=== PATIENT | female | born 1985 | race African-American/Black ===

== ENCOUNTER 2016-10-22 15:28 | Emergency (ER) | payer OTHER ==
[~2016-10-22] VITALS: Ht 162.6 cm; Wt 89.9 kg
[~2016-10-22 15:28] MED LIST: ASPIR-8181 MG OR; BACTRIM DS1 TAB PO; CIPROFLOXACN500 MG PO; DONNATA2 OR; FIORICET PO; FLAGYL500 MG PO; IBUPROFEN200 M1 OR; IBUPROFEN600 MG PO; KLOR-CON M2020 MEQ PO; LORTAB 7.57.5 MG PO; MAALOX PLUS OR; NO; PLAVIX75 MG OR; PRILOSEC OTC20 MG OR; PYRIDIUM200 MG PO; ULTRAM50 M1 PO; ZOFRAN ODT8 MG PO; [UNRECOGNIZED DRUG - OTHER] PO; prenatal
[2016-10-22] MEDS ORDERED: PYRIDIUM200 MG PO (16:07)
[2016-10-22] MEDS ORDERED: BACTRIM DS1 TAB PO (16:07)
[2016-10-22 16:11] LABS: URINE BILIRUBIN - DIPSTICK NEGATIVE (NEGATIVE); URINE BLOOD DIPSTICK MODERATE (NEGATIVE); URINE CLARITY CLOUDY; URINE COLOR YELLOW; URINE GLUCOSE - DIPSTICK NEGATIVE (NEGATIVE); URINE KETONE NEGATIVE (NEGATIVE); URINE LEUK ESTERASE NEGATIVE (NEGATIVE); URINE NITRITE - DIPSTICK POSITIVE (Negative); URINE PH 6.5 (4.5-8.0); URINE PROTEIN - DIPSTICK NEGATIVE (NEG-TRACE); URINE UROBILINOGEN - DIPSTICK 0.2 E.U./dL (0.2)
[2016-10-22 16:17] LABS: URINE BACTERIA MANY hpf; URINE SQUAMOUS EPITHELIAL CELL MANY EPI/hpf (0-FEW)
[2016-10-22 16:24] VITALS: BP 130/60
== END 2016-10-22 16:40 | disposition home or self-care (01) | DRG 690 ==
LOC: ED 15:28
PROVIDERS: Emergency Medicine
DX: N39.0 Urinary tract infection, site not specified (principal); B96.20 Unspecified Escherichia coli [E. coli] as the cause of diseases classified elsewhere; Z87.440 Personal history of urinary (tract) infections

== ENCOUNTER 2017-10-10 15:03 | Emergency (ER) | payer OTHER ==
[~2017-10-10] VITALS: Ht 162.6 cm; Wt 96.0 kg
[2017-10-10 15:58] LABS: URINE BILIRUBIN - DIPSTICK NEGATIVE (NEGATIVE); URINE BLOOD DIPSTICK TRACE-INTACT (NEGATIVE); URINE COLOR YELLOW; URINE GLUCOSE - DIPSTICK NEGATIVE (NEGATIVE); URINE KETONE NEGATIVE (NEGATIVE); URINE LEUK ESTERASE NEGATIVE (NEGATIVE); URINE NITRITE - DIPSTICK NEGATIVE (Negative); URINE PROTEIN - DIPSTICK NEGATIVE (NEG-TRACE); URINE SPECIFIC GRAVITY 1.025; URINE UROBILINOGEN - DIPSTICK 0.2 E.U./dL (0.2)
[2017-10-10 16:00] LABS: URINE CLARITY CLEAR
[2017-10-10] MEDS ORDERED: CEPHALEXIN500 M1 PO (16:07)
[2017-10-10 16:10] VITALS: BP 135/77
== END 2017-10-10 16:15 | disposition home or self-care (01) | DRG 696 ==
LOC: ED 15:03
PROVIDERS: Family Medicine
DX: R30.0 Dysuria (principal)

== ENCOUNTER 2017-11-13 10:40 | Emergency (ER) | payer OTHER ==
[~2017-11-13] VITALS: Ht 162.6 cm; Wt 95.0 kg
[~2017-11-13 10:40] MED LIST changes: +CEPHALEXIN500 M1 PO
[2017-11-13 11:04] VITALS: BP 136/96
[2017-11-13 11:41] LABS: URINE BILIRUBIN - DIPSTICK NEGATIVE (NEGATIVE); URINE BLOOD DIPSTICK LARGE (NEGATIVE); URINE COLOR YELLOW; URINE GLUCOSE - DIPSTICK NEGATIVE (NEGATIVE); URINE KETONE NEGATIVE (NEGATIVE); URINE LEUK ESTERASE NEGATIVE (NEGATIVE); URINE NITRITE - DIPSTICK NEGATIVE (Negative); URINE PH 6.5 (4.5-8.0); URINE PROTEIN - DIPSTICK NEGATIVE (NEG-TRACE); URINE SPECIFIC GRAVITY 1.015; URINE UROBILINOGEN - DIPSTICK 0.2 E.U./dL (0.2)
[2017-11-13 11:42] LABS: IMMATURE GRANULOCYTES 0.2 % (0.0-1.0); MEAN CORPUSCULAR HGB 27.3 pG CALC (26.0-32.0); MEAN CORPUSCULAR HGB CONC 32.4 g/L CALC (32.0-36.0); NEUT# 2.84 thou/uL (2.00-7.15); RED BLOOD COUNT 4.62 mill/uL (4.20-5.60); RED CELL DISTRI WIDTH 13.6 % (11.5-15.5)
[2017-11-13 11:42] LABS: URINE CLARITY CLEAR
[2017-11-13 11:57] LABS: BILIRUBIN, TOTAL 0.4 mg/dL (0.0-1.4); BUN 7 mg/dL (7-17); BUN/CREATININE RATIO 11 (12-20 (CALC)); CHLORIDE 103 mmol/l (95-108); CREATININE 0.6 mg/dL (0.5-1.0); GFR > 60 ML/MIN (>=60 (CALC)); GFR FOR AFR.AMER. > 60 ML/MIN (>=60 (CALC)); LIPASE 45 u/l (23-300); POTASSIUM 3.7 mmol/l (3.5-5.1); SGOT/AST 14 u/l (14-36); SGPT/ALT 27 u/l (9-52); SODIUM 143 mmol/l (137-146); TOTAL PROTEIN 8.1 g/dL (6.3-8.2)
[2017-11-13 11:58] LABS: ALBUMIN 4.3 g/dL (3.2-5.0); ALKALINE PHOSPHATASE 72 u/l (38-126); ANION GAP 17 (6-22 (CALC)); CARBON DIOXIDE 27 mmol/l (22-30)
[2017-11-13 12:18] LABS: HEMATOCRIT 38.9 % (37.0-47.0); HEMOGLOBIN 12.6 g/dl (12.0-16.0); MEAN CELL VOLUME 84.2 fL CALC (80.0-100.0)
[2017-11-13 12:26] LABS: URINE RBC TNTC RBC/hpf (0-5); URINE SQUAMOUS EPITHELIAL CELL FEW EPI/hpf (0-FEW)
== END 2017-11-13 14:44 | disposition home or self-care (01) | DRG 782 ==
LOC: ED 10:40
PROVIDERS: Family Medicine
DX: O26.851 Spotting complicating pregnancy, first trimester (principal); M54.5 Low back pain; R10.84 Generalized abdominal pain

== ENCOUNTER 2017-11-23 15:14 | Emergency (ER) | payer OTHER ==
[~2017-11-23] VITALS: Ht 162.6 cm; Wt 95.0 kg
[2017-11-23 16:23] LABS: URINE BLOOD DIPSTICK LARGE (NEGATIVE); URINE GLUCOSE - DIPSTICK NEGATIVE (NEGATIVE); URINE KETONE TRACE mg/dL (NEGATIVE); URINE LEUK ESTERASE NEGATIVE (NEGATIVE); URINE NITRITE - DIPSTICK NEGATIVE (Negative); URINE PH 6.5 (4.5-8.0); URINE PROTEIN - DIPSTICK 100 mg/dL (NEG-TRACE); URINE UROBILINOGEN - DIPSTICK 0.2 E.U./dL (0.2)
[2017-11-23 16:28] LABS: URINE BILIRUBIN - DIPSTICK NEGATIVE (NEGATIVE); URINE CLARITY SL CLOUDY; URINE COLOR AMBER; URINE RBC >100 RBC/hpf (0-5); URINE SQUAMOUS EPITHELIAL CELL FEW EPI/hpf (0-FEW)
[2017-11-23 17:09] VITALS: BP 135/71
== END 2017-11-23 17:17 | disposition home or self-care (01) | DRG 779 ==
LOC: ED 15:14
DX: O03.9 Complete or unspecified spontaneous abortion without complication (principal)

== ENCOUNTER 2018-02-28 17:07 | Emergency (ER) | payer OTHER ==
[~2018-02-28] VITALS: Ht 162.6 cm; Wt 95.0 kg
[2018-02-28 18:22] LABS: URINE BILIRUBIN - DIPSTICK NEGATIVE (NEGATIVE); URINE BLOOD DIPSTICK NEGATIVE (NEGATIVE); URINE COLOR YELLOW; URINE GLUCOSE - DIPSTICK NEGATIVE (NEGATIVE); URINE KETONE TRACE mg/dL (NEGATIVE); URINE LEUK ESTERASE NEGATIVE (Negative); URINE NITRITE - DIPSTICK NEGATIVE (Negative); URINE PROTEIN - DIPSTICK NEGATIVE (NEG-TRACE); URINE SPECIFIC GRAVITY 1.025
[2018-02-28 18:25] LABS: URINE CLARITY SL CLOUDY
[2018-02-28 19:04] VITALS: BP 127/77
== END 2018-02-28 19:11 | disposition home or self-care (01) ==
LOC: ED 17:07
DX: Z32.01 Encounter for pregnancy test, result positive (principal); M54.5 Low back pain; R30.0 Dysuria; R35.0 Frequency of micturition; R39.15 Urgency of urination; R10.30 Lower abdominal pain, unspecified

== ENCOUNTER 2018-03-30 17:09 | Emergency (ER) | payer OTHER ==
[~2018-03-30] VITALS: Ht 162.6 cm; Wt 80.0 kg
[2018-03-30 18:00] LABS: HEMATOCRIT 37.2 % (37.0-47.0); HEMOGLOBIN 12.7 g/dl (12.0-16.0); IMMATURE GRANULOCYTES 0.3 % (0.0-5.0); MEAN CORPUSCULAR HGB CONC 34.1 g/L CALC (32.0-36.0); NEUT# 4.43 thou/uL (2.00-7.15); RED BLOOD COUNT 4.71 mill/uL (4.20-5.60); RED CELL DISTRI WIDTH 12.9 % (11.5-15.5)
[2018-03-30 18:03] LABS: BARBITURATES NEGATIVE (NEGATIVE); COCAINE NEGATIVE (NEGATIVE); METHADONE NEGATIVE (NEGATIVE); OXCYCODONE NEGATIVE (NEGATIVE); TETRAHYDROCANNABIONOL NEGATIVE (NEGATIVE); TRICYLIC ANTIDEPRESSANTS NEGATIVE (NEGATIVE); URINE BLOOD DIPSTICK TRACE-LYSED (NEGATIVE); URINE COLOR YELLOW; URINE GLUCOSE - DIPSTICK NEGATIVE (NEGATIVE); URINE KETONE 40 mg/dL (NEGATIVE); URINE LEUK ESTERASE TRACE (Negative); URINE NITRITE - DIPSTICK NEGATIVE (Negative); URINE PH 6.5 (4.5-8.0); URINE PROTEIN - DIPSTICK 30 mg/dL (NEG-TRACE); URINE SPECIFIC GRAVITY 1.025
[2018-03-30 18:04] LABS: URINE BILIRUBIN - DIPSTICK NEGATIVE (NEGATIVE); URINE CLARITY HAZY
[2018-03-30 18:12] LABS: URINE MUCUS MANY hpf (NONE-FEW); URINE SQUAMOUS EPITHELIAL CELL MANY EPI/hpf (0-FEW)
[2018-03-30 18:16] LABS: ALBUMIN 4.5 g/dL (3.2-5.0); ALKALINE PHOSPHATASE 60 u/l (38-126); ANION GAP 19 (6-22 (CALC)); BILIRUBIN, TOTAL 0.4 mg/dL (0.0-1.4); BUN 6 mg/dL (7-17); BUN/CREATININE RATIO 9 (12-20 (CALC)); CARBON DIOXIDE 24 mmol/l (22-30); CHLORIDE 96 mmol/l (95-108); CREATININE 0.7 mg/dL (0.5-1.0); GFR > 60 ML/MIN (>=60 (CALC)); GFR FOR AFR.AMER. > 60 ML/MIN (>=60 (CALC)); SODIUM 136 mmol/l (137-146); TOTAL PROTEIN 8.7 g/dL (6.3-8.2)
[2018-03-30 18:26] LABS: SGOT/AST 28 u/l (14-36)
[2018-03-30] MEDS ORDERED: POT CHLORIDE10 ME5 PO (18:42)
[2018-03-30] MEDS ORDERED: ZOFRAN ODT4 MG PO (18:42)
[2018-03-30 18:48] VITALS: BP 133/73
[2018-03-30 19:03] LABS: BETA-HCG, QUANT(RESULT NUMBER) 81297 mIU/mL
== END 2018-03-30 18:56 | disposition home or self-care (01) ==
LOC: ED 17:09
PROVIDERS: Emergency Medicine
DX: R10.30 Lower abdominal pain, unspecified (principal); G89.29 Other chronic pain; E87.6 Hypokalemia; Z33.1 Pregnant state, incidental

== ENCOUNTER 2019-11-02 | Emergency (ER) | payer OTHER ==
[~2019-11-02] MED LIST changes: +POT CHLORIDE10 ME5 PO; +ZOFRAN ODT4 MG PO
[2019-11-02 06:40] LABS: URINE BILIRUBIN - DIPSTICK NEGATIVE (NEGATIVE); URINE COLOR YELLOW; URINE GLUCOSE - DIPSTICK NEGATIVE (NEGATIVE); URINE KETONE NEGATIVE (NEGATIVE); URINE NITRITE - DIPSTICK NEGATIVE (Negative); URINE PROTEIN - DIPSTICK NEGATIVE (NEG-TRACE); URINE UROBILINOGEN - DIPSTICK 0.2 E.U./dL (0.2)
[2019-11-02 06:42] LABS: HEMATOCRIT 38.6 % (37.0-47.0); HEMOGLOBIN 12.5 g/dl (12.0-16.0); IMMATURE GRANULOCYTES 0.2 % (0.0-5.0); MEAN CELL VOLUME 80.4 fL CALC (80.0-100.0); MEAN CORPUSCULAR HGB CONC 32.4 g/dL CAL (32.0-36.0); NEUT# 3.44 thou/uL (2.00-7.15); RED BLOOD COUNT 4.8 mill/uL (4.20-5.60); RED CELL DISTRI WIDTH 14.4 % (11.5-15.5)
[2019-11-02 06:43] LABS: URINE BLOOD DIPSTICK NEGATIVE (NEGATIVE); URINE LEUK ESTERASE SMALL (NEGATIVE)
[2019-11-02 06:47] LABS: URINE BACTERIA MODERATE hpf; URINE EPITHELIAL CELLS MANY EPI/hpf (0-FEW)
[2019-11-02 06:49] LABS: BARBITURATES NEGATIVE (NEGATIVE); COCAINE NEGATIVE (NEGATIVE); METHADONE NEGATIVE (NEGATIVE); OXCYCODONE NEGATIVE (NEGATIVE); TETRAHYDROCANNABIONOL NEGATIVE (NEGATIVE); TRICYLIC ANTIDEPRESSANTS NEGATIVE (NEGATIVE)
[2019-11-02 07:00] LABS: ALBUMIN 4.5 g/dL (3.2-5.0); ALKALINE PHOSPHATASE 89 u/l (38-126); ANION GAP 13 (6-22 (CALC)); BILIRUBIN, TOTAL 0.4 mg/dL (0.0-1.4); BUN 4 mg/dL (7-17); BUN/CREATININE RATIO 6 (12-20 (CALC)); CARBON DIOXIDE 28 mmol/l (22-30); CHLORIDE 103 mmol/l (95-108); CREATININE 0.6 mg/dL (0.5-1.0); GFR > 60 ML/MIN (>=60 (CALC)); GFR FOR AFR.AMER. > 60 ML/MIN (>=60 (CALC)); POTASSIUM 3.1 mmol/l (3.5-5.1); SGOT/AST 30 u/l (14-36); SODIUM 140 mmol/l (137-146); TOTAL PROTEIN 8.6 g/dL (6.3-8.2)
[2019-11-02 07:12] LABS: MYOGLOBIN 15 ng/mL (0 - 62)
[2019-11-02] MEDS ORDERED: K-TAB20 MEQ PO (07:19)
[2019-11-02] MEDS ORDERED: CEPHALEXIN500 M1 PO (08:16)
== END 2019-11-02 08:15 | disposition home or self-care (01) ==
PROVIDERS: Emergency Medicine
DX: R00.2 Palpitations (principal); E87.6 Hypokalemia; R20.0 Anesthesia of skin; R06.02 Shortness of breath

== ENCOUNTER 2021-03-29 16:03 | Emergency (ER) | payer OTHER ==
[~2021-03-29] VITALS: Ht 162.6 cm; Wt 90.0 kg
[~2021-03-29 16:03] MED LIST changes: +K-TAB20 MEQ PO
[2021-03-29 17:43] LABS: HEMATOCRIT 43.5 % (37.0-47.0); HEMOGLOBIN 13.8 g/dl (12.0-16.0); MEAN CELL VOLUME 82.2 fL CALC (80.0-100.0); MEAN CORPUSCULAR HGB 26.1 pG CALC (26.0-32.0); MEAN CORPUSCULAR HGB CONC 31.7 g/dL CAL (32.0-36.0); NEUT# 3.16 thou/uL (2.00-7.15); RED BLOOD COUNT 5.29 mill/uL (4.20-5.60)
[2021-03-29 17:46] LABS: URINE BILIRUBIN - DIPSTICK NEGATIVE (NEGATIVE); URINE BLOOD DIPSTICK NEGATIVE (NEGATIVE); URINE COLOR YELLOW; URINE GLUCOSE - DIPSTICK NEGATIVE (NEGATIVE); URINE KETONE NEGATIVE (NEGATIVE); URINE LEUK ESTERASE NEGATIVE (NEGATIVE); URINE PROTEIN - DIPSTICK TRACE mg/dL (NEG-TRACE); URINE SPECIFIC GRAVITY >=1.030; URINE UROBILINOGEN - DIPSTICK 0.2 E.U./dL (0.2)
[2021-03-29 17:48] LABS: URINE NITRITE - DIPSTICK NEGATIVE (Negative)
[2021-03-29 17:55] LABS: ALBUMIN 4.8 g/dL (3.2-5.0); ALKALINE PHOSPHATASE 81 u/l (38-126); ANION GAP 16 (6-22 (CALC)); BILIRUBIN, TOTAL 0.5 mg/dL (0.0-1.4); BUN 4 mg/dL (7-17); BUN/CREATININE RATIO 6 (12-20 (CALC)); CARBON DIOXIDE 25 mmol/l (22-30); CHLORIDE 104 mmol/l (95-108); CREATININE 0.7 mg/dL (0.5-1.0); GFR > 60 ML/MIN (>=60 (CALC)); GFR FOR AFR.AMER. > 60 ML/MIN (>=60 (CALC)); SGOT/AST 22 u/l (14-36); SODIUM 141 mmol/l (137-146); TOTAL PROTEIN 9.5 g/dL (6.3-8.2)
[2021-03-29] MEDS ORDERED: MIRALAX17 GM PO (19:10)
[2021-03-29 19:15] VITALS: BP 126/75
== END 2021-03-29 19:15 | disposition home or self-care (01) ==
LOC: ED 16:03
PROVIDERS: Family Medicine
DX: K59.00 Constipation, unspecified (principal)

== ENCOUNTER 2021-04-02 16:18 | Emergency (ER) | payer OTHER ==
[~2021-04-02] VITALS: Ht 162.6 cm; Wt 100.0 kg
[~2021-04-02 16:18] MED LIST changes: +MIRALAX17 GM PO
[2021-04-02 17:23] LABS: HEMATOCRIT 42.9 % (37.0-47.0); HEMOGLOBIN 13.8 g/dl (12.0-16.0); IMMATURE GRANULOCYTES 0.3 % (0.0-5.0); MEAN CELL VOLUME 80.8 fL CALC (80.0-100.0); MEAN CORPUSCULAR HGB CONC 32.2 g/dL CAL (32.0-36.0); NEUT# 1.99 thou/uL (2.00-7.15); RED BLOOD COUNT 5.31 mill/uL (4.20-5.60); RED CELL DISTRI WIDTH 14.3 % (11.5-15.5)
[2021-04-02 17:26] LABS: URINE BLOOD DIPSTICK LARGE (NEGATIVE); URINE COLOR YELLOW; URINE GLUCOSE - DIPSTICK NEGATIVE (NEGATIVE); URINE KETONE 40 mg/dL (NEGATIVE); URINE LEUK ESTERASE NEGATIVE (NEGATIVE); URINE PROTEIN - DIPSTICK 30 mg/dL (NEG-TRACE); URINE SPECIFIC GRAVITY 1.025; URINE UROBILINOGEN - DIPSTICK 0.2 E.U./dL (0.2)
[2021-04-02 17:28] LABS: URINE BILIRUBIN - DIPSTICK NEGATIVE (NEGATIVE); URINE NITRITE - DIPSTICK NEGATIVE (Negative)
[2021-04-02 17:39] LABS: URINE BACTERIA RARE hpf; URINE SQUAMOUS EPITHELIAL CELL MANY EPI/hpf (0-FEW)
[2021-04-02 17:43] LABS: ALBUMIN 4.6 g/dL (3.2-5.0); ALKALINE PHOSPHATASE 84 u/l (38-126); ANION GAP 15 (6-22 (CALC)); BILIRUBIN, TOTAL 0.5 mg/dL (0.0-1.4); BUN 13 mg/dL (7-17); BUN/CREATININE RATIO 15 (12-20 (CALC)); CARBON DIOXIDE 27 mmol/l (22-30); CHLORIDE 101 mmol/l (95-108); CREATININE 0.8 mg/dL (0.5-1.0); GFR > 60 ML/MIN (>=60 (CALC)); GFR FOR AFR.AMER. > 60 ML/MIN (>=60 (CALC)); LIPASE 161 u/l (23-300); POTASSIUM 3.5 mmol/l (3.5-5.1); SGOT/AST 29 u/l (14-36); SODIUM 140 mmol/l (137-146); TOTAL PROTEIN 9.2 g/dL (6.3-8.2)
[2021-04-02] MEDS ORDERED: ZOFRAN4 M1 PO (18:09)
[2021-04-02 18:28] VITALS: BP 128/68
== END 2021-04-02 18:35 | disposition home or self-care (01) ==
LOC: ED 16:18
PROVIDERS: Family Medicine
DX: K52.9 Noninfective gastroenteritis and colitis, unspecified (principal)

== ENCOUNTER 2021-11-13 18:13 | Observation (INO) | payer OTHER ==
[~2021-11-13] VITALS: Ht 162.6 cm; Wt 82.0 kg
[~2021-11-13 18:13] MED LIST changes: +ZOFRAN4 M1 PO
--- NOTE | 2021-11-13 18:22 | NUR ---
PT ESCORTED TO ROOM 12 VIA [facility]RETCH[facility] FOR "NEAR SYNCOPAL EPISODE AND PANIC ATTACK"
[2021-11-13 18:52] LABS: HEMATOCRIT 39.4 % (37.0-47.0); HEMOGLOBIN 12.3 g/dl (12.0-16.0); IMMATURE GRANULOCYTES 0.4 % (0.0-5.0); MEAN CELL VOLUME 84.5 fL CALC (80.0-100.0); MEAN CORPUSCULAR HGB 26.4 pG CALC (26.0-32.0); MEAN CORPUSCULAR HGB CONC 31.2 g/dL CAL (32.0-36.0); NEUT# 3.51 thou/uL (2.00-7.15); RED BLOOD COUNT 4.66 mill/uL (4.20-5.60); RED CELL DISTRI WIDTH 14.4 % (11.5-15.5)
[2021-11-13 18:53] LABS: URINE BILIRUBIN - DIPSTICK NEGATIVE (NEGATIVE); URINE BLOOD DIPSTICK NEGATIVE (NEGATIVE); URINE COLOR YELLOW; URINE GLUCOSE - DIPSTICK NEGATIVE (NEGATIVE); URINE KETONE NEGATIVE (NEGATIVE); URINE LEUK ESTERASE NEGATIVE (NEGATIVE); URINE PROTEIN - DIPSTICK NEGATIVE (NEG-TRACE); URINE UROBILINOGEN - DIPSTICK 0.2 E.U./dL (0.2)
[2021-11-13 18:55] LABS: URINE NITRITE - DIPSTICK POSITIVE (Negative)
[2021-11-13 19:01] LABS: URINE BACTERIA FEW hpf; URINE RBC 0-2 RBC/hpf (0-5); URINE SQUAMOUS EPITHELIAL CELL FEW EPI/hpf (0-FEW); URINE WBC 0-2 WBC/hpf (0-5)
[2021-11-13 19:06] LABS: ALBUMIN 4.5 g/dL (3.2-5.0); ALKALINE PHOSPHATASE 72 u/l (38-126); ANION GAP 15 (6-22 (CALC)); BILIRUBIN, TOTAL 0.3 mg/dL (0.0-1.4); BUN 3 mg/dL (7-17); BUN/CREATININE RATIO 5 (12-20 (CALC)); CHLORIDE 106 mmol/l (95-108); CREATININE 0.6 mg/dL (0.5-1.0); ETHYL ALCOHOL 0 mg/dl (0-30); GFR FOR AFR.AMER. > 60 ML/MIN (>=60 (CALC)); GFR OTHER RACES > 60 ML/MIN (>=60 (CALC)); LIPASE 53 u/l (23-300); POTASSIUM 3.1 mmol/l (3.5-5.1); PROTHROMBIN TIME 10.8 SECONDS (9.0-12.5); SGOT/AST 20 u/l (14-36); SODIUM 139 mmol/l (137-146); TOTAL PROTEIN 8.6 g/dL (6.3-8.2)
[2021-11-13 19:17] LABS: CARBON DIOXIDE 21 mmol/l (22-30)
[2021-11-13 19:18] LABS: MYOGLOBIN 14 ng/mL (0 - 62)
--- NOTE | 2021-11-13 21:42 | NUR ---
Pt resting in room. Awaiting covid result for transport
--- NOTE | 2021-11-13 22:09 | NUR ---
Pt arrived to the floor. Face to face report given from [facility]. Pt was able to ambulate from the wheelchair to the bed. Pt denies any pain, discomfort or dizziness. Vitals taken and patient was assessed. Patient oriented to room, TV and fall risk precautions. Fall risk band applied, bed alarm on, bed placed in low position and call light within reach
[2021-11-13 22:13] VITALS: BP 113/65
[2021-11-14] VITALS (7 sets, daily range): BP systolic 106–135; BP diastolic 61–73
--- NOTE | 2021-11-14 04:12 | NUR ---
Pt sleeping at this time. Call light within reach and bed alarm on
[2021-11-14 06:16] LABS: HEMATOCRIT 35.6 % (37.0-47.0); HEMOGLOBIN 11.1 g/dl (12.0-16.0); MEAN CORPUSCULAR HGB 26.5 pG CALC (26.0-32.0); MEAN CORPUSCULAR HGB CONC 31.2 g/dL CAL (32.0-36.0); RED BLOOD COUNT 4.19 mill/uL (4.20-5.60); RED CELL DISTRI WIDTH 14.4 % (11.5-15.5)
[2021-11-14 06:43] LABS: ANION GAP 12 (6-22 (CALC)); BUN 3 mg/dL (7-17); BUN/CREATININE RATIO 6 (12-20 (CALC)); CALCULATED LDLCHOLESTEROL 97 mg/dL (62-129 (CALC)); CARBON DIOXIDE 22 mmol/l (22-30); CHLORIDE 110 mmol/l (95-108); CHOLESTEROL HDL RATIO 4.1 (<4.4 (CALC)); CREATININE 0.6 mg/dL (0.5-1.0); GFR FOR AFR.AMER. > 60 ML/MIN (>=60 (CALC)); GFR OTHER RACES > 60 ML/MIN (>=60 (CALC)); HDL CHOLESTEROL 36 mg/dL (>=40); POTASSIUM 3.6 mmol/l (3.5-5.1); SODIUM 140 mmol/l (137-146); TOTAL CHOLESTEROL 149 mg/dl (0-199); TOTAL TRIGLYCERIDES 79 mg/dl (30-149); VLDL CHOLESTROL 16 mg/dl (1-41 (CALC))
--- NOTE | 2021-11-14 07:00 | NUR ---
RECEIVE REPORT FROM [facility].
--- NOTE | 2021-11-14 08:25 | NUR ---
PATIENT ALERT AND ORIENTED X3. NO REFER ANY PAIN OR DISCOMFORT AT THIS TIME.PATIENT IS EDUCATED ABOUD MEDICATIONS AND NURSING PLAN FOR TODAY. PATIENT REFER UNDERSTAND.
--- NOTE | 2021-11-14 12:00 | NUR ---
PATIENT STABLE AT THIS TIME. RESTING IN BED.
--- NOTE | 2021-11-14 13:45 | NUR ---
PATIENT IS DISCHARGED STABLE. PATIENT IS EDUCATED ABOUD FOLLOW UP WITH PCP.
== END 2021-11-14 13:26 | disposition home or self-care (01) ==
LOC: ED 18:13 → ED-I 20:00 → ED 20:07 → MS2 20:08
PROVIDERS: Nurse Practitioner; ADMIT Hospitalist; ATTEND Hospitalist
DX: R42 Dizziness and giddiness (principal); E86.0 Dehydration; E87.2 Acidosis; E87.6 Hypokalemia; Z20.822 Contact with and (suspected) exposure to COVID-19
CPT/HCPCS: G0378

== ENCOUNTER 2022-01-16 19:09 | Emergency (ER) | payer OTHER ==
[~2022-01-16] VITALS: Ht 162.6 cm; Wt 89.9 kg
[2022-01-16 19:59] VITALS: BP 108/79
== END 2022-01-16 20:05 | disposition home or self-care (01) ==
LOC: ED 19:09
DX: H61.23 Impacted cerumen, bilateral (principal)

== ENCOUNTER 2022-10-09 23:13 | Emergency (ER) | payer OTHER ==
[~2022-10-09] VITALS: Ht 162.6 cm; Wt 94.0 kg
[2022-10-10] VITALS: BP 136/87
[2022-10-10 00:15] VITALS: BP 128/82
[2022-10-10 00:24] VITALS: BP 145/88
[2022-10-10 00:53] LABS: BASO% 0.3 % (0-3); EOS% 7.4 % (0-8); HEMOGLOBIN 9.6 g/dl (12.0-16.0); IMMATURE GRANULOCYTES 0.1 % (0.0-5.0); LYMPH% 35.9 % (15-41); MEAN CORPUSCULAR HGB 21.7 pG CALC (26.0-32.0); MONO% 6.2 % (2-13); NEUT# 4.44 thou/uL (2.00-7.15); NEUT% 50.1 % (42-76); RED BLOOD COUNT 4.42 mill/uL (4.20-5.60); RED CELL DISTRI WIDTH 17.2 % (11.5-15.5)
[2022-10-10 00:58] LABS: ALBUMIN 4.3 g/dL (3.2-5.0); ALKALINE PHOSPHATASE 66 u/l (38-126); ANION GAP 10 (6-22 (CALC)); BILIRUBIN, TOTAL 0.2 mg/dL (0.02-1.3); BUN 7 mg/dL (7-17); BUN/CREATININE RATIO 10 (12-20 (CALC)); CARBON DIOXIDE 25 mmol/l (22-30); CHLORIDE 105 mmol/l (95-108); CREATININE 0.7 mg/dL (0.5-1.0); GFR FOR AFR.AMER. > 60 ML/MIN (>=60 (CALC)); GFR OTHER RACES > 60 ML/MIN (>=60 (CALC)); POTASSIUM 3.4 mmol/l (3.5-5.1); SGOT/AST 19 u/l (14-36); SODIUM 138 mmol/l (137-146); TOTAL PROTEIN 8.1 g/dL (6.3-8.2)
[2022-10-10 01:00] VITALS: BP 138/81
[2022-10-10 01:01] LABS: MEAN CELL VOLUME 72.4 fL CALC (80.0-100.0)
[2022-10-10 01:15] VITALS: BP 121/74
[2022-10-10 01:20] LABS: URINE BILIRUBIN - DIPSTICK NEGATIVE (NEGATIVE); URINE BLOOD DIPSTICK NEGATIVE (NEGATIVE); URINE COLOR YELLOW; URINE GLUCOSE - DIPSTICK NEGATIVE (NEGATIVE); URINE KETONE NEGATIVE (NEGATIVE); URINE LEUK ESTERASE NEGATIVE (NEGATIVE); URINE PROTEIN - DIPSTICK NEGATIVE (NEG-TRACE); URINE SPECIFIC GRAVITY 1.025; URINE UROBILINOGEN - DIPSTICK 0.2 E.U./dL (0.2)
[2022-10-10 01:24] LABS: URINE NITRITE - DIPSTICK NEGATIVE (Negative)
[2022-10-10 01:29] LABS: TSH, 3RD GENERATION 1.68 uIU/mL (0.47 - 4.68)
[2022-10-10] MEDS ORDERED: PROMETHAZINE HY25 M1 PO (01:52)
[2022-10-10] MEDS ORDERED: CHROMAGEN1 CAP PO (01:52)
[2022-10-10 02:09] VITALS: BP 121/74
== END 2022-10-10 02:32 | disposition home or self-care (01) ==
LOC: ED 23:13
PROVIDERS: Family Medicine
DX: A08.4 Viral intestinal infection, unspecified (principal); D64.9 Anemia, unspecified

== ENCOUNTER 2023-01-25 11:01 | Emergency (ER) | payer OTHER ==
[~2023-01-25] VITALS: Ht 162.6 cm; Wt 90.0 kg
[~2023-01-25 11:01] MED LIST changes: +CHROMAGEN1 CAP PO; +PROMETHAZINE HY25 M1 PO
[2023-01-25] MEDS ORDERED: FLOXIN OTIC0.3 % AU (11:31)
[2023-01-25 11:53] VITALS: BP 126/64
== END 2023-01-25 11:50 | disposition home or self-care (01) ==
LOC: ED 11:01
DX: H60.93 Unspecified otitis externa, bilateral (principal)

== ENCOUNTER 2024-07-18 15:51 | Emergency (ER) | payer OTHER ==
[~2024-07-18] VITALS: Ht 162.6 cm; Wt 93.0 kg
[~2024-07-18 15:51] MED LIST changes: +FLOXIN OTIC0.3 % AU
[2024-07-18] MEDS ORDERED: KETOROLAC TROMETHAMINE 30 MG/ML SDV IM ONE (16:10)
[2024-07-18] MEDS ORDERED: predniSONE 20 MG/TAB PO ONE (16:10)
[2024-07-18] MEDS ORDERED: ORPHENADRINE CITRATE 30 MG/ML AMP IM ONE (16:10)
[2024-07-18 16:48] LABS: URINE BILIRUBIN - DIPSTICK Negative (NEGATIVE); URINE BLOOD DIPSTICK Negative (NEGATIVE); URINE COLOR Yellow; URINE GLUCOSE - DIPSTICK Negative (NEGATIVE); URINE KETONE Negative (NEGATIVE); URINE LEUK ESTERASE Negative (NEGATIVE); URINE NITRITE - DIPSTICK Negative (Negative); URINE PH 5.5 (4.5-8.0); URINE PROTEIN - DIPSTICK Negative (NEG-TRACE); URINE SPECIFIC GRAVITY 1.015; URINE UROBILINOGEN - DIPSTICK 0.2 E.U./dL (0.2)
[2024-07-18] MEDS ORDERED: NAPROXEN500 MG PO (17:36)
[2024-07-18] MEDS ORDERED: MEDDOSEPAK PO (17:36)
[2024-07-18] MEDS ORDERED: METHOCARBAMOL500 MG PO (17:36)
[2024-07-18 17:50] VITALS: BP 132/78
== END 2024-07-18 17:50 | disposition home or self-care (01) ==
LOC: ED 15:51
PROVIDERS: Nurse Practitioner
DX: M54.50 Low back pain, unspecified (principal)
CPT/HCPCS: J2360